=== PATIENT | female | born 1960 | race Caucasian/White ===

== ENCOUNTER → 2020-06-29 16:25 | Outpatient (BNVA) | payer OTHER, SELFPAY | PROVIDERS: Family Provider Family Medicine; PCP Family Medicine; Visit Provider Nurse Practitioner Family | DX: E03.9 Hypothyroidism, unspecified (principal); I10 Essential (primary) hypertension; E55.9 Vitamin D deficiency, unspecified; E78.5 Hyperlipidemia, unspecified; R03.0 Elevated blood-pressure reading, without diagnosis of hypertension; Z68.41 Body mass index [BMI] 40.0-44.9, adult | CPT/HCPCS: 80053; 80061; 82306; 84439; 84443 ==

== ENCOUNTER 2022-07-15 12:25 | Outpatient (CLI) | payer OTHER, SELFPAY ==
--- NOTE | 2022-07-15 12:35 | CT_ITS ---
WS: [id number] CT CHEST WITH INTRAVENOUS CONTRAST HISTORY: ANGIOEDEMA TECHNIQUE: Contiguous 5 mm axial imaging performed on the thorax. Coronal and sagittal reformats are submitted. All CT scans at [facility] use at least one of these dose optimization techniques: automated exposure control; mA and/or kV adjustment per patient size (includes targeted exams where dose is matched to clinical indication); or iterative reconstruction. CONTRAST: Omnipaque 350; 95 mL IV. DLP: 711.61 mGy.cm COMPARISON: None available. Lungs and central airway: Very mild groundglass attenuation and interstitial thickening in the periph colin of the airways. 3 mm nodule in the posterior superior segment RIGHT lower lobe. No mass. Pleura: Normal. No pleural effusion. Heart and pericardium: Normal size heart with no pericardial effusion. Mediastinum and shonna: No mediastinum or hilar adenopathy. Vessels: The superior vena cava is normally enhancing. No mediastinal masses or obstruction centrally . The heart and great vessels are normal. Chest wall and lower neck: No soft tissue edema or anasarca. Upper abdomen: Negative. Osseous structures: Mild degenerative disc disease. CT/CT chest w con* [id number] IMPRESSION: 1. No SVC occlusion or mass effect. Great vessels are normally enhancing. No s oft tissue edema or anasarca. 2. Very minimal hazy opacifications throughout the lungs may be seen with a mi ld hypersensitivity pneumonia or mild residual inflammation. No pneumonia. No a denopathy.
[2022-07-15] MEDS: iohexol 350 mg/mL 500 mL Btl (per mL) IV (14:42)
== END 2022-07-15 12:26 | disposition home or self-care (01) ==
PROVIDERS: PCP Nurse Practitioner; Visit Provider Nurse Practitioner Primary Care
DX: T78.3XXA Angioneurotic edema, initial encounter (principal)
CPT/HCPCS: 71260

== ENCOUNTER 2022-08-04 06:00 | Outpatient (RCR) | payer OTHER, SELFPAY | END 2022-09-03 23:59 | disposition home or self-care (01) | LOC: GPT 06:00 | PROVIDERS: PCP Nurse Practitioner; Visit Provider Nurse Practitioner | DX: M54.17 Radiculopathy, lumbosacral region (principal) | CPT/HCPCS: 97162 ==

== ENCOUNTER → 2024-11-26 10:04 | Outpatient (BNVA) | payer OTHER, BC, MEDICAID, SELFPAY | PROVIDERS: PCP Nurse Practitioner; Visit Provider Orthopaedic Surgery | DX: M25.511 Pain in right shoulder (principal); G89.29 Other chronic pain | CPT/HCPCS: 73030 ==

== ENCOUNTER 2025-01-21 09:40 | Outpatient (CLI) | payer OTHER, MEDICAID, MEDICARE, SELFPAY ==
--- NOTE | 2025-01-21 09:40 | MM_ITS ---
WS: [id number] BILATERAL 3D TOMOSYNTHESIS DIGITAL SCREENING MAMMOGRAPHY WITH CAD CLINICAL INFORMATION: SCREENING HISTORY: Screening mammogram. No current complaints. COMPARISON: 2022 TECHNIQUE: Bilateral CC and MLO views. FINDINGS: Scattered fibroglandular densities bilaterally. Clustered tiny calcifications upper inner quadrant LEFT breast. Recommend further evaluation with spot magnification views. RIGHT breast is unchanged. MM/MM scr tomosynthesis [id number] IMPRESSION: DENSITY: There are scattered areas of fibroglandular density. BI-RADS: 0 - Incomplete: Need additional imaging evaluation. FOLLOW UP: Need Additional Imaging Recommend spot magnification views of the LEFT breast calcifications.
== END 2025-01-21 09:41 | disposition home or self-care (01) ==
PROVIDERS: PCP Nurse Practitioner; Visit Provider Nurse Practitioner
DX: Z12.31 Encounter for screening mammogram for malignant neoplasm of breast (principal); R92.323 Mammographic fibroglandular density, bilateral breasts; N63.22 Unspecified lump in the left breast, upper inner quadrant
CPT/HCPCS: 77063; 77067

== ENCOUNTER 2025-02-06 14:53 | Outpatient (CLI) | payer MEDICARE, MEDICAID, SELFPAY ==
--- NOTE | 2025-02-06 14:54 | MM_ITS ---
WS: [id number] LEFT 3D TOMOSYNTHESIS DIGITAL MAMMOGRAPHY WITH CAD CLINICAL INFORMATION: ABNORMAL MAMMO HISTORY: Additional views COMPARISON: 01/21/2025 TECHNIQUE: 3 views of the left breast were obtained. FINDINGS: Scattered fibroglandular densities of the left breast. Again seen are clustered tiny calcifications upper inner quadrant LEFT breast. Spot magnification views demonstrate faint clustered calcifications in this area. Some of these are in a ductal distribution recommend further evaluation with stereotactic guided biopsy. MM/MM diag LT tomosynthesis [id number] IMPRESSION: DENSITY: There are scattered areas of fibroglandular density. BI-RADS: 4 - Suspicious Finding - Biopsy Should Be Considered. FOLLOW UP: Stereotactic Biopsy Recommended Recommend further evaluation of the calcifications with stereotactic guided bio psy.
== END 2025-02-06 14:54 | disposition home or self-care (01) ==
LOC: RAD 14:54
PROVIDERS: PCP Nurse Practitioner; Visit Provider Nurse Practitioner
DX: R92.8 Other abnormal and inconclusive findings on diagnostic imaging of breast (principal); R92.322 Mammographic fibroglandular density, left breast; R92.1 Mammographic calcification found on diagnostic imaging of breast
CPT/HCPCS: 77061; G0279

== ENCOUNTER 2025-02-18 12:28 | Outpatient (CLI) | payer OTHER, MEDICAID, SELFPAY ==
--- NOTE | 2025-02-18 | MM_ITS ---
WS: [id number] STEREOTACTIC LEFT BREAST BIOPSY WITH VACUUM ASSISTANCE HISTORY: CALCIFICATIONS LEFT BREAST COMPARISON: 02/06/2025, 01/21/2025 Procedure, risks and complications were explained to the patient. Medications and prior radiographs are reviewed. LEFT breast calcifications are located. Calcifications located in the upper inner quadrant. Calcifications are targeted in the craniocaudal projection. The skin is cleansed with ChloraPrep and anesthetized with 1% buffered lidocaine. Deeper soft tissues anesthetized with a combination of lidocaine and epinephrine. Small dermatome is made. Needle advanced into the LEFT breast. Stereotactic imaging reveals appropriate positioning adjacent calcifications. Multiple vacuum-assisted core biopsies are obtained. No complications were encountered. Post biopsy specimen radiograph reveals numerous calcifications. Biopsy clip is placed in the cavity. Post imaging reveals good placement of the clip. No migration. There are still residual calcifications but a large group of the calcifications was removed. Pressures held for approximately 15 minutes. No bleeding. Dressing applied. Patient discharged with no complications. There is no bleeding. With any questions or complications patient is to return. MM/[place] [id number] IMPRESSION: 1. Uncomplicated LEFT breast stereotactic biopsy. 2. Specimen contains numerous calcifications. Pathology: Fatty breast parenchyma with hyalinized fibroadenomas lesion. Associ ated calcifications. Mild duct ectasia and apocrine metaplasia. No malignancy. RECOMMENDATION: 6-month diagnostic mammogram follow-up. Recommend diagnostic LEFT mammogram follow-up with magnification views in 6 mon ths
--- NOTE | 2025-02-18 | MM_ITS ---
WS: [id number] STEREOTACTIC LEFT BREAST BIOPSY WITH VACUUM ASSISTANCE HISTORY: CALCIFICATIONS LEFT BREAST COMPARISON: 02/06/2025, 01/21/2025 Procedure, risks and complications were explained to the patient. Medications and prior radiographs are reviewed. LEFT breast calcifications are located. Calcifications located in the upper inner quadrant. Calcifications are targeted in the craniocaudal projection. The skin is cleansed with ChloraPrep and anesthetized with 1% buffered lidocaine. Deeper soft tissues anesthetized with a combination of lidocaine and epinephrine. Small dermatome is made. Needle advanced into the LEFT breast. Stereotactic imaging reveals appropriate positioning adjacent calcifications. Multiple vacuum-assisted core biopsies are obtained. No complications were encountered. Post biopsy specimen radiograph reveals numerous calcifications. Biopsy clip is placed in the cavity. Post imaging reveals good placement of the clip. No migration. There are still residual calcifications but a large group of the calcifications was removed. Pressures held for approximately 15 minutes. No bleeding. Dressing applied. Patient discharged with no complications. There is no bleeding. With any questions or complications patient is to return. MM/[place] [id number] IMPRESSION: 1. Uncomplicated LEFT breast stereotactic biopsy. 2. Specimen contains numerous calcifications. Pathology: Fatty breast parenchyma with hyalinized fibroadenomas lesion. Associ ated calcifications. Mild duct ectasia and apocrine metaplasia. No malignancy. RECOMMENDATION: 6-month diagnostic mammogram follow-up. Recommend diagnostic LEFT mammogram follow-up with magnification views in 6 mon ths
--- NOTE | 2025-02-18 | MM_ITS ---
WS: [id number] STEREOTACTIC LEFT BREAST BIOPSY WITH VACUUM ASSISTANCE HISTORY: CALCIFICATIONS LEFT BREAST COMPARISON: 02/06/2025, 01/21/2025 Procedure, risks and complications were explained to the patient. Medications and prior radiographs are reviewed. LEFT breast calcifications are located. Calcifications located in the upper inner quadrant. Calcifications are targeted in the craniocaudal projection. The skin is cleansed with ChloraPrep and anesthetized with 1% buffered lidocaine. Deeper soft tissues anesthetized with a combination of lidocaine and epinephrine. Small dermatome is made. Needle advanced into the LEFT breast. Stereotactic imaging reveals appropriate positioning adjacent calcifications. Multiple vacuum-assisted core biopsies are obtained. No complications were encountered. Post biopsy specimen radiograph reveals numerous calcifications. Biopsy clip is placed in the cavity. Post imaging reveals good placement of the clip. No migration. There are still residual calcifications but a large group of the calcifications was removed. Pressures held for approximately 15 minutes. No bleeding. Dressing applied. Patient discharged with no complications. There is no bleeding. With any questions or complications patient is to return. MM/MM surgical specimen LT IMPRESSION: 1. Uncomplicated LEFT breast stereotactic biopsy. 2. Specimen contains numerous calcifications. Pathology: Fatty breast parenchyma with hyalinized fibroadenomas lesion. Associ ated calcifications. Mild duct ectasia and apocrine metaplasia. No malignancy. RECOMMENDATION: 6-month diagnostic mammogram follow-up. Recommend diagnostic LEFT mammogram follow-up with magnification views in 6 mon ths
== END 2025-02-18 12:29 | disposition home or self-care (01) ==
LOC: RAD 12:30
PROVIDERS: PCP Nurse Practitioner; Visit Provider Nurse Practitioner
DX: R92.8 Other abnormal and inconclusive findings on diagnostic imaging of breast (principal); R92.312 Mammographic fatty tissue density, left breast; N60.22 Fibroadenosis of left breast; R92.1 Mammographic calcification found on diagnostic imaging of breast; N60.42 Mammary duct ectasia of left breast; N60.82 Other benign mammary dysplasias of left breast
CPT/HCPCS: 19081; 77065; 88305